=== PATIENT | female | born 1960 | race Hispanic/Latino ===

== ENCOUNTER 2016-06-09 14:15 | Emergency (ER) | payer BC ==
[2016-06-09] MEDS ORDERED: BENADRYL IM ONE (19:42)
[2016-06-09] MEDS ORDERED: PEPCID PO ONE (19:42)
--- NOTE | 2016-06-09 19:50 | Emergency Department Report ---
HPI - General Chief Complaint: Allergic Reaction Time Seen by Provider: 06/09/16 19:43 - HPI HPI: Patient reports possible who food allergic reaction that started 3 days ago. She complains of hives on her arms, legs and waist. She has tried Benadryl, however to no avail. She admits to taking 40 mg of Prednisone today from a previous prescription. She denies difficulty breathing or swallowing ED Past Medical Hx - Past Medical History Previous Medical History?: Yes Hx Hypertension: Yes Additional medical history: PCOS - Surgical History Past Surgical History?: Yes Additional Surgical History: Bilateral oophorectomy, tonsillectomy - Social History Smoking Status: Never Smoker Substance Use Type: Alcohol, Prescribed, Other - Medications Home Medications: Home Medications Medication Instructions Recorded Confirmed Last Taken Type predniSONE [Deltasone] 20 mg PO TID #12 tab 06/16/14 Unknown Rx Famotidine [Pepcid] 20 mg PO BID #10 tablet 06/09/16 Unknown Rx methylPREDNISolone [Medrol] 4 mg PO QAM #1 tab.ds.pk 06/09/16 Unknown Rx ED Review of Systems ROS: Stated complaint: ALLERGIC RX X 3DAYS AGO Other details as noted in HPI Constitutional: denies: chills, diaphoresis, fever, malaise, weakness ENT: denies: throat pain, dental pain, hearing loss, epistaxis, congestion Respiratory: denies: cough, orthopnea, shortness of breath, SOB with exertion, SOB at rest, stridor, wheezing Cardiovascular: denies: chest pain, palpitations, dyspnea on exertion, orthopnea , edema, syncope, paroxysmal nocturnal dyspnea Gastrointestinal: denies: abdominal pain, nausea, vomiting, diarrhea, constipation Skin: rash (hives on waist and bilateral extremities), pruritus. denies: lesions, change in color, change in hair/nails Neurological: denies: headache, weakness, numbness, paresthesias, confusion, abnormal gait, vertigo Physical Exam - Physical Exam Vital Signs: Vital Signs 06/09/16 15:49 Temperature 98.3 F Pulse Rate 86 Respiratory 20 Rate Blood Pressure 174/74 O2 Sat by Pulse 98 Oximetry General: obese, NAD Physical Exam: Orapharynx: Mucous membranes moist, tongue normal, no trismus, drooling, muffled voice, hoarseness, exudates, erythema, tonsillar or uvula swelling Respiratory: Even and unlabored, lungs clear to auscultate bilateral, chest symmetry with respirations, no wheezing, rails are rhonchi Cardio: Heart sounds present S1-S2, 2+ pulses upper and lower extremities, no murmurs, gallops or ectopy noted, Skin: Raised pink-red & well demarcated blanching lesions on bilateral extremities and waist, warm, dry and intact, no erythema, ecchymosis, lacerations pallor or vascular compromise ED Course Vital Signs 06/09/16 15:49 Temperature 98.3 F Pulse Rate 86 Respiratory 20 Rate Blood Pressure 174/74 O2 Sat by Pulse 98 Oximetry - Reevaluation(s) Reevaluation #1: 06/09/16 19:51 Antihistamines ordered ED Medical Decision Making - Lab Data Vital Signs 06/09/16 15:49 Temperature 98.3 F Pulse Rate 86 Respiratory 20 Rate Blood Pressure 174/74 O2 Sat by Pulse 98 Oximetry - Medical Decision Making During the course of ED, antihistamines were ordered. She was sent home with prescriptions for Medrol dose pack and Pepcid, instructed to follow up with the selective referral given at discharge, she verbalized understanding - Differential Diagnosis Allergic Reaction, Contact Dermatitis Critical care attestation.: If time is entered above; I have spent that time in minutes in the direct care of this critically ill patient, excluding procedure time. ED Disposition Clinical Impression: Allergic reaction Qualifiers: Encounter type: initial encounter Qualified Code(s): T78.40XA - Allergy, unspecified, initial encounter Disposition: DISCHARGED TO HOME OR SELFCARE Is pt being admited?: No Does the pt Need Aspirin: No Condition: Stable Instructions: Allergies (ED), Anaphylaxis (ED) Additional Instructions: Take medication as directed. No drinking or driving while taking Benadryl. Follow up with the selective referral given at discharge. Return back to the ED for worsening symptoms or concerns Prescriptions: methylPREDNISolone [Medrol] 4 mg PO QAM #1 tab.ds.pk Famotidine [Pepcid] 20 mg PO BID #10 tablet Referrals: PRIMARY CARE, [Primary Care Provider] - 3-5 Days ASHER RIOS MD [Staff Physician] - 3-5 Days Forms: Work/School Release Form(ED) Time of Disposition: 19:58
[2016-06-09 20:16] VITALS: BP 156/78
== END 2016-06-09 20:01 | disposition home or self-care (01) ==
LOC: ED 14:15
DX: T78.40XA Allergy, unspecified, initial encounter (principal); I10 Essential (primary) hypertension; Y92.9 Unspecified place or not applicable
CPT/HCPCS: 96372; 99282; J1200